=== PATIENT | male | born 1980 | race Two or more races ===

== ENCOUNTER 2024-07-11 12:56 | Inpatient (IN) | payer OTHER ==
[~2024-07-11] VITALS: Ht 170.2 cm; Wt 206.5 kg
--- NOTE | 2024-07-11 15:46 | ED.PDOC ---
History of present illness HPI Comments 44 y/o M, with PMHx of DM presents to the ED for CC of hyperglycemia. Patient reports, that he has been experiencing high blood sugar readings with associated symptoms of excessive thirst and diarrhea [id number]. Patient reports, that he [facility] [place] and is currently at a drug rehabilitation center. Patient endorses, when moving to the the rehabilitation center he was unable to take his insulin with him. Patient denies tremors, nausea, vomiting, or headache. No other symptoms or modifying factors present at this time. Chief Complaint: Hyperglycemia Time Seen by MD: 15:25 History of present illness: Nurses Notes, Medications, Allergies Allergies: Coded Allergies: NO KNOWN ALLERGIES (Unverified , 07/11/24) Information Source: Patient Mode of Arrival: Ambulatory Timing: Days Duration: Since onset Prehospital treatment: None Symptoms: Anxious History of: Diabetes, Insulin use Modifying factors: Nothing Associated signs and symptoms: None Past Medical History PAST MEDICAL HISTORY: DM Surgical History: Denies all surgeries Family History Family History: Unknown Social History Smoker: Non-Smoker Alcohol: Denies ETOH Use Drugs: Denies Drug Use Lives In: Home Constitutional: denies: chills, diaphoresis, fatigue, fever, malaise, sweats, weakness, others EENTM: denies: blurred vision, double vision, ear bleeding, ear discharge, ear drainage, ear pain, ear ringing, eye pain, eye redness, hearing loss, mouth pain, mouth swelling, nasal discharge, nose bleeding, nose congestion, nose pain, photophobia, tearing, throat pain, throat swelling, voice changes, others Respiratory: denies: cough, hemoptysis, orthopnea, SOB at rest, shortness of breath, SOB with excertion, stridor, wheezing, others Cardiovascular: denies: chest pain, dizzy spells, diaphoresis, Dyspnea on exertion, edema, irregular heart beat, left arm pain, lightheadedness, palpitations, PND, syncope, others Gastrointestinal: reports: diarrhea; denies: abdomen distended, abdominal pain, blood streaked bowels, constipated, dysphagia, difficulty swallowing, hematemesis, melena, nausea, poor appetite, poor fluid intake, rectal bleeding, rectal pain, vomiting, others Genitourinary: denies: burning, dysuria, flank pain, frequency, hematuria, incontinence, penile discharge, penile sore, pain, testicle pain, testicle swelling, urgency, others Neurological: denies: dizziness, fainting, headache, left sided numbness, left sided weakness, numbness, paresthesia, pre-existing deficit, right sided numbness, right sided weakness, seizure, speech problems, tingling, tremors, wea kness, others Musculoskeletal: denies: back pain, gout, joint pain, joint swelling, muscle pain, muscle stiffness, neck pain, others Integumetry: denies: bruises, change in color, change in hair/nails, dryness, l aceration, lesions, lumps, rash, wounds, others Allergic/Immunocompromised: denies: Difficulty Healing, Frequent Infections, Hives, Itching, others Hematologic/Lymphatic: denies: anemia, blood clots, easy bleeding, easy bruising, swollen glands, others Endocrine: reports: excessive thirst Psychiatric: denies: anxiety, bipolar disorder, depression, hopeless, panic disorder, schizophrenia, sleepless, suicidal, others All Other Systems: Reviewed and Negative Physical Exam General Appearance: Mild Distress HEENT: Normal ENT Inspection, Pharynx Normal, TMs Normal Neck: Full Range of Motion, Non-Tender, Normal, Normal Inspection Respiratory: Chest Non-Tender, Lungs Clear, No Accessory Muscle Use, No Respiratory Distress, Normal Breath Sounds Cardiovascular: No Edema, No JVD, No Murmur, No Gallop, Normal Peripheral Pulses, Regular Rate/Rhythm Breast Exam: Deferred Gastrointestinal: No Organomegaly, Non Tender, No Pulsatile Mass, Normal Bowel Sounds, Soft Genitalia: Deferred Pelvic: Deferred Rectal: Deferred Extremities: No calf tenderness, Normal capillary refill, Normal inspection, Normal range of motion, Non-tender, No pedal edema Musculoskeletal : Apperance: Normal Neurologic: Alert, transformer tester II-XII nml as Tested, Motor Weakness, Normal Affect, Normal Mood, No Sensory Deficits Cerebellar Function: Normal Reflexes: Normal Skin: Dry, Normal Color, Warm Lymphatic: No Adenopathy Was a procedure done? Was a procedure done?: No Differential Diagnosis (DM) Differential Diagnosis: Hyperglycemia X-Ray, Labs, Meds, VS Vital Signs Date Time Temp Pulse Resp B/P (MAP) Pulse Ox O2 Delivery O2 Flow Rate FiO2 07/11/24 17:54 75 18 99 Room Air* 0 21 07/11/24 17:54 98.3 75 17 137/71 (93) 99 98.3 07/11/24 13:30 98.0 98 18 117/71 (86) 99 98.0 Lab Test 07/11/24 17:48 07/11/24 15:44 07/11/24 13:47 07/11/24 13:46 Range/Units POC Glucose 266 H 406 *H 421 *H 70-106 mg/dl White Blood Count 7.1 4.4-10.8 10^3/uL Red Blood Count 4.72 4.5-5.90 10^6/uL Hemoglobin 16.2 13.5-17.5 g/dL Hematocrit 44.2 41.0-53.0 % Mean Corpuscular Volume 93.6 80.0-100.0 fL Mean Corpuscular Hemoglobin 34.2 H 28.0-32.0 pg Mean Corpuscular Hemoglobin Concent 36.6 H 32.0-36.0 g/dL Red Cell Distribution Width 13.8 11.8-14.3 % Platelet Count 191 140-450 10^3/uL Mean Platelet Volume 7.6 6.9-10.8 fL Neutrophils (%) (Auto) 48.5 37.0-80.0 % Lymphocytes (%) (Auto) 36.3 10.0-50.0 % Monocytes (%) (Auto) 10.3 0.0-12.0 % Eosinophils (%) (Auto) 4.2 0.0-7.0 % Basophils (%) (Auto) 0.7 0.0-2.0 % Neutrophils # (Auto) 3.4 1.6-8.6 10 ^3/uL Lymphocytes # (Auto) 2.6 0.4-5.4 10 ^3/uL Monocytes # (Auto) 0.7 0-1.3 10 ^3/uL Eosinophils # (Auto) 0.3 0-0.8 10 ^3/uL Basophils # (Auto) 0 0-0.2 10 ^3/uL Nucleated Red Blood Cells 0.2 % Sodium Level 133 L 136-145 mmol/L Potassium Level 4.2 3.5-5.1 mmol/L Chloride Level 101 98-107 mmol/L Carbon Dioxide Level 22 20-31 mmol/L Anion Gap 10 5-15 Blood Urea Nitrogen 13 9-23 mg/dL Creatinine 0.91 0.700-1.30 mg/dL Glomerular Filtration Rate Calc 108 >90 mL/min BUN/Creatinine Ratio 14.3 10.0-20.0 Serum Glucose 371 H 74-106 mg/dL Calcium Level 10.3 8.7-10.4 mg/dL Beta-Hydroxybutyric Acid 0.134 < 0.4 mmol/L Current Medications Medications (Trade) Dose Ordered Sig/Harpreet Route Start Time Stop Time Status Last Admin Sodium Chloride 1,000 ml @ 1,000 mls/hr Q1H ONCE IV 07/11/24 15:45 07/11/24 16:44 DC 07/11/24 17:49 Insulin Human Regular (InsuLIN R) 5 units ONCE ONCE IV 07/11/24 15:45 07/11/24 15:46 DC 07/11/24 17:51 The patient's CBC is within normal limits The chemistry panel is within normal limits. The patient's glucose is 371 indicating hyperglycemia The patient was given a 1 L bolus of normal saline The patient was given insulin 5 units IV push The patient remains hyperglycemic with uncontrolled diabetes The patient is being admitted at this time Images Reviewed?: Images reviewed and evaluated by me Time of 1ST Reevaluation: 15:55 Reevaluation 1ST: Unchanged Patient Education/Counseling: Diagnosis, Treatment, Prognosis Family Education/Counseling: No Family Present Departure 1 Departure Time of Disposition: 18:10 Impression: Primary Impression: Uncontrolled diabetes mellitus Qualified Codes: E13.65 - Other specified diabetes mellitus with hyperglycemia Disposition: ADMITTED INPATIENT Admit to: Med Surg Condition: Fair Critical Care Note Critical Care Time?: No Stability Stability form required: No Heart Score Heart Score: Heart Score Response (Comments) Value History N/A 0 EKG N/A 0 Age N/A 0 Risk Factors N/A 0 Troponin N/A 0 Total 0 I personally scribed for ELAINE HESTER MD ([email or web address]) on 07/11/24 at 15:46. Electronically submitted by Diane Ramirez ([email or web address]). I personally scribed for ELANIE HESTER MD ([email or web address]) on 07/11/24 at 16:02. Electronically submitted by Diane Ramirez ([email or web address]). ELAINE HESTER MD July 11, 2024 15:46
[2024-07-11 16:13] LABS: Basophils # (auto) 0 10 ^3/uL (0-0.2); Basophils % (auto) 0.7 % (0.0-2.0); Eosinophils # (auto) 0.3 10 ^3/uL (0-0.8); Eosinophils % (auto) 4.2 % (0.0-7.0); Hematocrit 44.2 % (41.0-53.0); Hemoglobin 16.2 g/dL (13.5-17.5); Lymphocytes # (auto) 2.6 10 ^3/uL (0.4-5.4); Lymphocytes % (auto) 36.3 % (10.0-50.0); Mean Corpuscular Hemoglobin 34.2 pg (28.0-32.0); Mean Corpuscular Volume 93.6 fL (80.0-100.0); Monocytes # (auto) 0.7 10 ^3/uL (0-1.3); Monocytes % (auto) 10.3 % (0.0-12.0); Neutrophils # (auto) 3.4 10 ^3/uL (1.6-8.6); Neutrophils % (auto) 48.5 % (37.0-80.0); Nucleated Red Blood Cells % 0.2 %; Platelet Count (auto) 191 10^3/uL (140-450); Red Blood Cells 4.72 10^6/uL (4.5-5.90); Red Cell Distribution Width 13.8 % (11.8-14.3); White Blood Cell 7.1 10^3/uL (4.4-10.8)
[2024-07-11 16:15] LABS: Mean Corpuscular Hgb Conc. 36.6 g/dL (32.0-36.0)
[2024-07-11 16:25] LABS: Chloride 101 mmol/L (98-107); Potassium 4.2 mmol/L (3.5-5.1)
[2024-07-11 16:26] LABS: Anion Gap 10 (5-15); Calcium 10.3 mg/dL (8.7-10.4); Carbon Dioxide 22 mmol/L (20-31)
[2024-07-11 16:31] LABS: BUN/Creatinine Ratio 14.3 (10.0-20.0); Blood Urea Nitrogen 13 mg/dL (9-23)
[2024-07-11 16:32] LABS: Glucose 371 mg/dL (74-106); Sodium 133 mmol/L (136-145)
[2024-07-11] MEDS: SODIUM CHLORIDE 0.9% 1,000 ML IV ONE (17:49)
[2024-07-11] MEDS: InsuLIN REG 1unit/0.01ml Soln (100units/ml) IV ONE (17:51)
[2024-07-11 17:54] VITALS: PULSE 75; RESP 18; O2SAT 99
[2024-07-11] MEDS ORDERED: ONDANSETRON HCL 4 MG/2 ML VIAL IV PRN (20:45)
[2024-07-11] MEDS ORDERED: DEXTROSE (50%) 50ML SYRG IV PRN (20:45)
--- NOTE | 2024-07-11 21:46 | DVHHP2 ---
History of Present Illness Reason for Visit: hyperglycemia History of Present Illness A 44y old male with PMHx DM who came to ED due to high blood sugar, he stated he is being having polyuria, polydipsia, polyphagia and diarrhea for 2 weeks. He was in [place] before and now he is in rehab and since then he is not taking his medicine Past Medical History PAST MEDICAL HISTORY: DM Surgical History: Denies all surgeries Social History Smoker: Non-Smoker Alcohol: Denies recent ETOH Use? Drugs: he denies any recent use? Review of Systems Constitutional: Yes: Sweats, Weakness; No: Fever, Chills, Malaise, Other Gastrointestinal: Nausea Genitourinary: Frequency Allergies: Coded Allergies: NO KNOWN ALLERGIES (Unverified , 07/11/24) Medications Current Medications Medications Dose Ordered Sig/Harpreet Route Start Time Stop Time Status Last Admin Dose Admin Sodium Chloride 1,000 ml @ 150 mls/hr Q6H40M IV 07/11/24 20:45 Ondansetron HCl 4 mg Q4HP PRN IV 07/11/24 20:45 Enoxaparin Sodium 40 mg DAILY SC 07/12/24 10:00 Insulin Glargine 15 units HS SC 07/11/24 22:00 Insulin Human Lispro 5 units TIDAC SC 07/12/24 07:00 Diagnostic Test (Pha) 1 strip ACHS 07/11/24 22:00 Insulin Human Regular ACHS SC 07/11/24 22:00 Dextrose 50 ml UD PRN IV 07/11/24 20:45 Exam Vital Signs Vital Signs Date Time Temp Pulse Resp B/P (MAP) Pulse Ox O2 Delivery O2 Flow Rate FiO2 07/11/24 17:54 75 18 99 Room Air* 0 21 07/11/24 17:54 98.3 137/71 (93) 98.3 General Appearance: Alert, Oriented X3 HEENT: Atraumatic, PERRLA Respiratory: Clear to auscultation Cardiovascular: Regular rate, Normal S1 Abdominal: Normal bowel sounds, Soft Extremities: No clubbing, No cyanosis Skin: No rashes Neuro: Normal gait, Normal speech Psych/Mental Status: Mental status NL, Mood NL Labs/Xrays Labs Test 07/11/24 17:48 07/11/24 15:44 Range/Units POC Glucose 266 H 70-106 mg/dl White Blood Count 7.1 4.4-10.8 10^3/uL Red Blood Count 4.72 4.5-5.90 10^6/uL Hemoglobin 16.2 13.5-17.5 g/dL Hematocrit 44.2 41.0-53.0 % Mean Corpuscular Volume 93.6 80.0-100.0 fL Mean Corpuscular Hemoglobin 34.2 H 28.0-32.0 pg Mean Corpuscular Hemoglobin Concent 36.6 H 32.0-36.0 g/dL Red Cell Distribution Width 13.8 11.8-14.3 % Platelet Count 191 140-450 10^3/uL Mean Platelet Volume 7.6 6.9-10.8 fL Neutrophils (%) (Auto) 48.5 37.0-80.0 % Lymphocytes (%) (Auto) 36.3 10.0-50.0 % Monocytes (%) (Auto) 10.3 0.0-12.0 % Eosinophils (%) (Auto) 4.2 0.0-7.0 % Basophils (%) (Auto) 0.7 0.0-2.0 % Neutrophils # (Auto) 3.4 1.6-8.6 10 ^3/uL Lymphocytes # (Auto) 2.6 0.4-5.4 10 ^3/uL Monocytes # (Auto) 0.7 0-1.3 10 ^3/uL Eosinophils # (Auto) 0.3 0-0.8 10 ^3/uL Basophils # (Auto) 0 0-0.2 10 ^3/uL Nucleated Red Blood Cells 0.2 % Sodium Level 133 L 136-145 mmol/L Potassium Level 4.2 3.5-5.1 mmol/L Chloride Level 101 98-107 mmol/L Carbon Dioxide Level 22 20-31 mmol/L Anion Gap 10 5-15 Blood Urea Nitrogen 13 9-23 mg/dL Creatinine 0.91 0.700-1.30 mg/dL Glomerular Filtration Rate Calc 108 >90 mL/min BUN/Creatinine Ratio 14.3 10.0-20.0 Serum Glucose 371 H 74-106 mg/dL Calcium Level 10.3 8.7-10.4 mg/dL Beta-Hydroxybutyric Acid 0.134 < 0.4 mmol/L Assessment/Plan Assessment/Plan #Uncontrolled DM type 2 #Acute gastroenteritis #Polysubstance abuse? #Mild hyponatremia Admit Med/surg Diabetic diet Lantus 15ui Lispro 5 ui TID Mild ISS IV fluids already given Pending UDS Labs AM Stool studies Case discussed with Dr Monzon Full code Plan discussed with: Patient, Other (rn) My Orders Orders - FRITZ CASTANEDA Procedure Category Date Status Time Admit ADMIT 07/11/24 Transmitted 20:39 Code Status CODE 07/11/24 Transmitted 20:39 Vital Signs MICHAEL 07/11/24 In Process 20:39 Review Orders With MICHAEL 07/11/24 In Process Adm.Md 20:39 Consistent DIET 07/12/24 Transmitted Carb(Ccho)Diabetes Breakfast Sodium Chloride 0.9% PHA 07/11/24 In Process 20:45 Notify Md Of Changes MICHAEL 07/11/24 In Process From Base 20:39 Advance Directive MICHAEL 07/11/24 In Process 20:39 Patient Condition ORDERS 07/11/24 Transmitted 20:39 Allergies MICHAEL 07/11/24 In Process 20:39 Ondansetron Hcl PHA 07/11/24 In Process (Zofran) 20:45 Drug Screen LAB 07/11/24 Logged 20:39 Enoxaparin Sodium PHA 07/12/24 In Process (Lovenox) 10:00 Insulin Lantus PHA 07/11/24 In Process (Glargine) (Lantus) 22:00 Glucose Blood PHA 07/11/24 In Process (Accu-Chek Comfort 22:00 Insulin R (Human) PHA 07/11/24 In Process (Insulin R) 22:00 Dextrose 50% Syringe PHA 07/11/24 In Process 20:45 * Lmft CONS 07/11/24 Transmitted Consult Stool Bacterial NAGA 07/11/24 Logged Culture 20:39 Stool Wbc LAB 07/11/24 Logged 20:39 Stool Occult Blood LAB 07/11/24 Logged 20:39 Insulin Lispro PHA 07/12/24 In Process (Human) (Humalog) 07:00 Date of Service: July 12, 2024 Billing Provider: ISSA MONZON MD Common Visit Codes: [id number] INP/OBS CARE (HIGH) Secondary Visit Codes: [id number] CARE PLAN 30 MINUTES FRITZ CASTANEDA July 11, 2024 21:46
[2024-07-11] MEDS: INSULIN LANTUS (GLARGINE) 1 /0.01ml (100units/ml) SC SCH (22:00)
[2024-07-12 00:10] VITALS: BP 131/78; PULSE 75; RESP 18; TEMP 98.1; O2SAT 99
[2024-07-12] MEDS: ACCU-CHEK COMFORT CURVE STRIP VI SCH ×2 (00:35→22:53)
[2024-07-12] MEDS: InsuLIN REG 1unit/0.01ml Soln (100units/ml) SC SCH (00:39)
[2024-07-12] MEDS: SODIUM CHLORIDE 0.9% 1,000 ML IV SCH (02:40)
[2024-07-12 05:20] VITALS: BP 123/69; PULSE 82; RESP 18; TEMP 98.2; O2SAT 98
--- NOTE | 2024-07-12 06:29 | DVH ---
CHEST RADIOGRAPH Indication: Dyspnea Technique: Single frontal view of the chest was obtained Comparison: None FINDINGS: Lines and Tubes: None Lungs: No focal consolidation. Pleura: No effusion. No pneumothorax. Cardiomediastinal contours: Unremarkable Bones: No acute osseous abnormality. IMPRESSION: 1. No acute cardiopulmonary disease.
[2024-07-12] MEDS: INSULIN LISPRO (HUMAN) 100 UNITS/ML ML SC SCH ×3 (06:42→22:54)
[2024-07-12 08:55] VITALS: BP 120/75; PULSE 64; RESP 24; TEMP 98.4; O2SAT 99
[2024-07-12] MEDS: ENOXAPARIN SOD 40 MG/0.4 ML SYRINGE SC SCH (10:16)
[2024-07-12 12:38] LABS: Basophils # (auto) 0 10 ^3/uL (0-0.2); Basophils % (auto) 0.7 % (0.0-2.0); Eosinophils # (auto) 0.3 10 ^3/uL (0-0.8); Eosinophils % (auto) 6.1 % (0.0-7.0); Hematocrit 43.3 % (41.0-53.0); Hemoglobin 15.1 g/dL (13.5-17.5); Lymphocytes # (auto) 2.1 10 ^3/uL (0.4-5.4); Lymphocytes % (auto) 36.9 % (10.0-50.0); Mean Corpuscular Hemoglobin 32.6 pg (28.0-32.0); Mean Corpuscular Volume 93.2 fL (80.0-100.0); Monocytes # (auto) 0.7 10 ^3/uL (0-1.3); Monocytes % (auto) 11.8 % (0.0-12.0); Neutrophils # (auto) 2.5 10 ^3/uL (1.6-8.6); Neutrophils % (auto) 44.5 % (37.0-80.0); Nucleated Red Blood Cells % 0.1 %; Platelet Count (auto) 173 10^3/uL (140-450); Red Blood Cells 4.64 10^6/uL (4.5-5.90); White Blood Cell 5.7 10^3/uL (4.4-10.8)
[2024-07-12 12:53] LABS: Albumin 4.6 g/dL (3.2-4.8); Alkaline Phosphatase 76 U/L (46-116); Anion Gap 6 (5-15); BUN/Creatinine Ratio 13.7 (10.0-20.0); Blood Urea Nitrogen 10 mg/dL (9-23); Calcium 9.6 mg/dL (8.7-10.4); Carbon Dioxide 25 mmol/L (20-31); Chloride 106 mmol/L (98-107); Potassium 3.9 mmol/L (3.5-5.1); Sodium 137 mmol/L (136-145); Total Protein 7.6 g/dL (5.7-8.2)
[2024-07-12 12:54] LABS: Bilirubin, Total 0.9 mg/dL (0.2-1.0); Cholesterol 180 mg/dL (< 200)
[2024-07-12 12:56] LABS: Alanine Aminotransferase 69 U/L (7-40); Aspartate Aminotransferase 62 U/L (13-40); Glucose 207 mg/dL (74-106); HDL Cholesterol 32 mg/dL (40-59); LDL Cholesterol 115 mg/dL (< 100); Triglycerides 331 mg/dL (< 150)
[2024-07-12 13:12] VITALS: BP 126/75; PULSE 67; RESP 20; TEMP 97.9; O2SAT 100
[2024-07-12 14:09] VITALS: PULSE 77; RESP 18; O2SAT 97
[2024-07-12] MEDS: INSULIN LANTUS (GLARGINE) 1 /0.01ml (100units/ml) SC ONE (15:25)
[2024-07-12] MEDS ORDERED: DEXTROSE (50%) 50ML SYRG IV PRN (19:30)
--- NOTE | 2024-07-12 19:36 | DVHPNRES ---
Progress Note Date Seen: July 12, 2024 Resident Creating Document: GEORGE PINZONASHLYN RESIDENT Medical Necessity Reason Pt with a Central, PICC or Fol: No Subjective Review of Systems Patient is a 44-year-old male with a past medical history of type 2 diabetes mellitus presented to the ED with a chief complaint of polyuria polydipsia polyphagia for the last 10 days. Patient reports that he has been living in a [facility] and was previously living in [place] but he did not bring his medications along and has not been taking his insulin which was 25 units long-acting and 15 units short-acting 3 times a day. Patient reported of nausea but no episode of vomiting. Patient is in the rehab for alcohol addiction and reports that his last alcoholic drink was 20 days ago. Past medical history: Type 2 diabetes mellitus Past surgical history: None Social history: Patient quit alcohol about 2 weeks ago denies any other recent drug use, smoking Review of systems Patient seen and examined at the bedside Does not report of nausea, vomiting, diarrhea, abdominal pain Objective vital signs Vital Sign Date Time Temp Pulse Resp B/P (MAP) Pulse Ox O2 Delivery O2 Flow Rate FiO2 07/12/24 13:12 97.9 67 20 126/75 (92) 100 97.9 07/11/24 17:54 Room Air* 0 21 Total Intake and Output 07/11/24 07/11/24 07/12/24 15:00 23:00 07:00 Intake Total 1000 ml Balance 1000 ml medications Current Medications Medications Dose Ordered Sig/Harpreet Route Start Time Stop Time Status Last Admin Dose Admin Ondansetron HCl 4 mg Q4HP PRN IV 07/11/24 20:45 Enoxaparin Sodium 40 mg DAILY SC 07/12/24 10:00 07/12/24 10:16 40 MG Diagnostic Test (Pha) 1 strip ACHS 07/11/24 22:00 07/12/24 17:00 1 STRIP Dextrose 50 ml UD PRN IV 07/11/24 20:45 Insulin Human Lispro 7 units TIDAC SC 07/12/24 12:00 07/12/24 17:32 7 UNITS Examination Gen - no pallor, no icterus, no cyanosis, no clubbing, no LAD, no edema . Skin - Patients skin is warm and dry.. HEENT - normocephalic, atraumatic, moist mucous membranes. Neck - full ROM, no LAD, no JVD Pulmonary - B/L equal breath sounds. no crackles , no wheezing, no stridor. cardiovascular - normal S1,S2 heard. no murmurs heard. GI - soft, nontender abdomen. no hepatospleenomegaly. Bowel sounds normoactive Neurological - Patient is A/O X 3 . Bilateral upper extremity strength 5/5, bilateral lower extremity strength 5/5, no facial droop, normal speech, no tremor, no sensory deficiets. laboratory and microbiology Laboratory Tests 07/12/24 12:29 Test 07/12/24 12:29 Range/Units Serum Glucose 207 #H 74-106 mg/dL Problem List/Assessment/Plan Problem List/Assessment/Plan Uncontrolled type 2 diabetes mellitus with hyperglycemia Medication noncompliance Acute gastroenteritis - HbA1c 8.6% - started on insulin Lantus 22 units daily and insulin lispro 7 units a.c. - moderate insulin sliding scale with insulin lispro - IV fluids Dyslipidemia Hypertriglyceridemia - ASCVD score less than 7.5% but with diabetes, moderate intensity statin recommended - started on atorvastatin 20 mg DVT prophylaxis: Enoxaparin Goals of care discussed with the patient for over 33 minutes. Full code Plan discussed with Dr. Alva Plan discussed with: Patient My Orders My Orders Orders - MARIVEL PINZON Procedure Category Date Status Time Insulin Lispro PHA 07/12/24 In Process (Human) (Humalog) 12:00 Date of Service: July 12, 2024 Billing Provider: MATHEW ALVA MD Common Visit Codes: [id number] INP/OBS CARE(HIGH) MARIVEL PINZON RESIDENT July 12, 2024 19:36 MATHEW ALVA MD July 18, 2024 22:50
[2024-07-12 20:46] LABS: Amphetamine Screen, Urine Neg (NEGATIVE); Barbiturate Scree,Urine Neg (NEGATIVE); Benzodiazephine Screen, Urine Neg (NEGATIVE); Cannabinoid Screen, Urine Neg (NEGATIVE); Cocaine Screen, Urine Neg (NEGATIVE); Opiate Scree,Urine Neg (NEGATIVE); Phencyclidine Screen, Urine Neg (NEGATIVE)
[2024-07-12 20:48] LABS: Urine Bacteria FEW /hpf (None Seen); Urine Blood Negative /uL (Negative); Urine Clarity Clear (Clear); Urine Color Light-Yellow (Yellow); Urine Protein, UAD Negative (Negative); Urine Specific Gravity 1.012 (1.001-1.035); Urine Squamous Epithelial Cell FEW /hpf (<5); Urine Urobilinogen Normal (Negative); Urine WBC 1 /HPF (0-3); Urine pH 5.5 (5.0-9.0)
[2024-07-12 21:00] VITALS: BP 124/88; PULSE 73; RESP 20; TEMP 98.6; O2SAT 99
[2024-07-12] MEDS: ATORVASTATIN 20 MG TAB PO SCH (21:48)
[2024-07-13] VITALS (7 sets, daily range): BP systolic 109–133; BP diastolic 62–86; PULSE 73–97; RESP 16–19; TEMP 97.2–98.9; O2SAT 92–100
[2024-07-13 09:17] LABS: Basophils # (auto) 0 10 ^3/uL (0-0.2); Basophils % (auto) 0.7 % (0.0-2.0); Eosinophils # (auto) 0.3 10 ^3/uL (0-0.8); Eosinophils % (auto) 4.5 % (0.0-7.0); Hematocrit 41.7 % (41.0-53.0); Hemoglobin 14.7 g/dL (13.5-17.5); Lymphocytes # (auto) 1.4 10 ^3/uL (0.4-5.4); Lymphocytes % (auto) 25.6 % (10.0-50.0); Mean Corpuscular Hgb Conc. 35.3 g/dL (32.0-36.0); Mean Corpuscular Volume 93.4 fL (80.0-100.0); Monocytes # (auto) 0.6 10 ^3/uL (0-1.3); Monocytes % (auto) 11.6 % (0.0-12.0); Neutrophils # (auto) 3.2 10 ^3/uL (1.6-8.6); Neutrophils % (auto) 57.6 % (37.0-80.0); Nucleated Red Blood Cells % 0.1 %; Platelet Count (auto) 155 10^3/uL (140-450); Red Blood Cells 4.47 10^6/uL (4.5-5.90); Red Cell Distribution Width 13.7 % (11.8-14.3); White Blood Cell 5.6 10^3/uL (4.4-10.8)
[2024-07-13 09:22] LABS: Anion Gap 8 (5-15); Carbon Dioxide 24 mmol/L (20-31); Chloride 103 mmol/L (98-107); Potassium 3.8 mmol/L (3.5-5.1)
[2024-07-13 09:24] LABS: Calcium 9.5 mg/dL (8.7-10.4)
[2024-07-13 09:28] LABS: Blood Urea Nitrogen 10 mg/dL (9-23)
[2024-07-13 09:30] LABS: Glucose 228 mg/dL (74-106); Sodium 135 mmol/L (136-145)
[2024-07-13] MEDS: INSULIN LANTUS (GLARGINE) 1 /0.01ml (100units/ml) SC SCH (09:43)
[2024-07-13] MEDS ORDERED: INSLISPI SC ×3 (15:57→23:01)
[2024-07-13] MEDS ORDERED: ATOR20TA50 PO (15:57)
[2024-07-13] MEDS ORDERED: INSLANTI SC ×2 (15:57→23:01)
[2024-07-13] MEDS: ACETAMINOPHEN 325 MG TAB PO PRN (20:11)
--- NOTE | 2024-07-13 22:47 | DVHPNRES ---
Progress Note Date Seen: July 13, 2024 Resident Creating Document: GEORGE PINZONASHLYN RESIDENT Medical Necessity Reason Pt with a Central, PICC or Fol: No Subjective Review of Systems Patient is a 44-year-old male with a past medical history of type 2 diabetes mellitus presented to the ED with a chief complaint of polyuria polydipsia polyphagia for the last 10 days. Patient reports that he has been living in a rehab facility in the [facility] and was previously living in [place] but he did not bring his medications along and has not been taking his insulin which was 25 units long-acting and 15 units short-acting 3 times a day. Patient reported of nausea but no episode of vomiting. Patient is in the rehab for alcohol addiction and reports that his last alcoholic drink was 20 days ago. Past medical history: Type 2 diabetes mellitus Past surgical history: None Social history: Patient quit alcohol about 2 weeks ago denies any other recent drug use, smoking Review of systems Patient seen and examined at the bedside Does not report of nausea, vomiting, diarrhea, abdominal pain tolerating diet well Objective vital signs Vital Sign Date Time Temp Pulse Resp B/P (MAP) Pulse Ox O2 Delivery O2 Flow Rate FiO2 07/13/24 21:11 98.5 07/13/24 20:56 73 16 125/77 (93) 97 07/13/24 08:00 Room Air* 0 21 medications Current Medications Medications Dose Ordered Sig/Harpreet Route Start Time Stop Time Status Last Admin Dose Admin Ondansetron HCl 4 mg Q4HP PRN IV 07/11/24 20:45 Enoxaparin Sodium 40 mg DAILY SC 07/12/24 10:00 07/13/24 09:40 40 MG Insulin Human Lispro 7 units TIDAC SC 07/12/24 12:00 07/13/24 11:54 7 UNITS Insulin Glargine 22 units DAILY@1000 SC 07/13/24 10:00 07/13/24 09:43 22 UNITS Diagnostic Test (Pha) 1 strip ACHS 07/12/24 22:00 07/13/24 21:45 1 STRIP Insulin Human Lispro USE LISPRO INSULIN FOR M... ACHS SC 07/12/24 22:00 07/13/24 21:47 2 UNITS Dextrose 50 ml UD PRN IV 07/12/24 19:30 Atorvastatin Calcium 20 mg HS PO 07/12/24 22:00 07/13/24 21:39 20 MG Acetaminophen 325 mg Q4HP PRN PO 07/13/24 20:00 07/13/24 20:11 325 MG Examination Gen - no pallor, no icterus, no cyanosis, no clubbing, no LAD, no edema . Skin - Patients skin is warm and dry.. HEENT - normocephalic, atraumatic, moist mucous membranes. Neck - full ROM, no LAD, no JVD Pulmonary - B/L equal breath sounds. no crackles , no wheezing, no stridor. cardiovascular - normal S1,S2 heard. no murmurs heard. GI - soft, nontender abdomen. no hepatospleenomegaly. Bowel sounds normoactive Neurological - Patient is A/O X 3 . Bilateral upper extremity strength 5/5, bilateral lower extremity strength 5/5, no facial droop, normal speech, no tremor, no sensory deficiets. laboratory and microbiology Laboratory Tests 07/13/24 08:32 Test 07/13/24 08:32 Range/Units Serum Glucose 228 H 74-106 mg/dL Microbiology Date/Time Source Procedure Growth Status 07/12/24 20:00 Stool Stool Culture - Preliminary Resulted 07/12/24 20:00 Stool Shiga Toxin I & II - Final Resulted Problem List/Assessment/Plan Problem List/Assessment/Plan Uncontrolled type 2 diabetes mellitus with hyperglycemia Medication noncompliance Acute gastroenteritis - HbA1c 8.6% - started on insulin Lantus 22 units daily and insulin lispro 7 units a.c. - moderate insulin sliding scale with insulin lispro - IV fluids Dyslipidemia Hypertriglyceridemia - ASCVD score less than 7.5% but with diabetes, moderate intensity statin recommended - started on atorvastatin 20 mg DVT prophylaxis: Enoxaparin Goals of care discussed with the patient for over 31 minutes. Full code Plan discussed with Dr. Alva Plan discussed with: Patient My Orders My Orders Orders - MARIVEL PINZON RESIDENT Procedure Category Date Status Time Discharge DISCHARGE 07/13/24 Transmitted 15:26 Insulin Lispro PHA 07/14/24 Verified (Human) (Humalog) 07:00 Basic Metabolic Panel LAB 07/14/24 Verified 04:00 Date of Service: July 13, 2024 Billing Provider: MATHEW ALVA MD Common Visit Codes: [id number] INP/OBS CARE(HIGH) MARIVEL PINZON RESIDENT July 13, 2024 22:47 MATHEW ALVA MD July 19, 2024 09:09
[2024-07-13] MEDS ORDERED: LANC-347 XX (23:01)
[2024-07-13] MEDS ORDERED: ISOP70MI2 EX (23:01)
[2024-07-13] MEDS ORDERED: GLUC-224 VI (23:01)
[2024-07-13] MEDS ORDERED: BLOO-169 XX (23:01)
[2024-07-14 01:00] VITALS: BP 113/73; PULSE 81; RESP 16; TEMP 98.1; O2SAT 96
[2024-07-14 05:00] VITALS: BP 122/88; PULSE 79; RESP 16; TEMP 98.1; O2SAT 95
[2024-07-14] MEDS: INSULIN LISPRO (HUMAN) 100 UNITS/ML ML SC SCH (05:14)
[2024-07-14 08:00] VITALS: RESP 18; O2SAT 92
[2024-07-14 09:00] VITALS: BP 132/79; PULSE 90; RESP 16; TEMP 98.5; O2SAT 97
[2024-07-14 09:10] LABS: Chloride 103 mmol/L (98-107); Potassium 3.7 mmol/L (3.5-5.1); Sodium 137 mmol/L (136-145)
[2024-07-14 09:11] LABS: Anion Gap 10 (5-15); Carbon Dioxide 24 mmol/L (20-31)
[2024-07-14 09:12] LABS: Calcium 10.2 mg/dL (8.7-10.4)
[2024-07-14 09:17] LABS: BUN/Creatinine Ratio 11.3 (10.0-20.0); Blood Urea Nitrogen 9 mg/dL (9-23)
[2024-07-14 09:25] LABS: Glucose 168 mg/dL (74-106)
[2024-07-14 10:50] VITALS: TEMP 36.9
[2024-07-14] MEDS ORDERED: ISOP70MI2 EX (12:02)
[2024-07-14] MEDS ORDERED: BLOO-169 XX (12:02)
[2024-07-14] MEDS ORDERED: GLUC-224 VI (12:02)
[2024-07-14] MEDS ORDERED: LANC-347 XX (12:02)
[2024-07-14 13:00] VITALS: BP 136/85; PULSE 80; RESP 16; TEMP 98.3; O2SAT 96
--- NOTE | 2024-07-14 19:15 | DVHDSRES ---
Discharge Summary Date of Admission Resident Creating Document: MARIVEL PINZON RESIDENT July 11, 2024 at 20:39 Date of Discharge: July 13, 2024 Admitting Diagnosis #Uncontrolled DM type 2 #Acute gastroenteritis #Polysubstance abuse? #Mild hyponatremia Wounds: none Labs/Diagnostic Data: Laboratory Results Test 07/14/24 11:36 07/14/24 08:39 07/13/24 08:32 07/12/24 20:00 POC Glucose 165 mg/dl (70-106) Sodium Level 137 mmol/L (136-145) Potassium Level 3.7 mmol/L (3.5-5.1) Chloride Level 103 mmol/L (98-107) Carbon Dioxide Level 24 mmol/L (20-31) Anion Gap 10 (5-15) Blood Urea Nitrogen 9 mg/dL (9-23) Creatinine 0.80 mg/dL (0.700-1.30) Glomerular Filtration Rate Calc 113 mL/min (>90) BUN/Creatinine Ratio 11.3 (10.0-20.0) Serum Glucose 168 mg/dL (74-106) Calcium Level 10.2 mg/dL (8.7-10.4) White Blood Count 5.6 10^3/uL (4.4-10.8) Red Blood Count 4.47 10^6/uL (4.5-5.90) Hemoglobin 14.7 g/dL (13.5-17.5) Hematocrit 41.7 % (41.0-53.0) Mean Corpuscular Volume 93.4 fL (80.0-100.0) Mean Corpuscular Hemoglobin 33.0 pg (28.0-32.0) Mean Corpuscular Hemoglobin Concent 35.3 g/dL (32.0-36.0) Red Cell Distribution Width 13.7 % (11.8-14.3) Platelet Count 155 10^3/uL (140-450) Mean Platelet Volume 7.6 fL (6.9-10.8) Neutrophils (%) (Auto) 57.6 % (37.0-80.0) Lymphocytes (%) (Auto) 25.6 % (10.0-50.0) Monocytes (%) (Auto) 11.6 % (0.0-12.0) Eosinophils (%) (Auto) 4.5 % (0.0-7.0) Basophils (%) (Auto) 0.7 % (0.0-2.0) Neutrophils # (Auto) 3.2 10 ^3/uL (1.6-8.6) Lymphocytes # (Auto) 1.4 10 ^3/uL (0.4-5.4) Monocytes # (Auto) 0.6 10 ^3/uL (0-1.3) Eosinophils # (Auto) 0.3 10 ^3/uL (0-0.8) Basophils # (Auto) 0 10 ^3/uL (0-0.2) Nucleated Red Blood Cells 0.1 % Urine Color Light-yellow (Yellow) Urine Clarity Clear (Clear) Urine pH 5.5 (5.0-9.0) Urine Specific [place] 1.012 (1.001-1.035) Urine Protein Negative (Negative) Urine Ketones Negative (Negative) Urine Blood Negative /uL (Negative) Urine Nitrite Negative (Negative) Urine Bilirubin Negative (Negative) Urine Urobilinogen Normal mg/dL (Negative) Urine Leukocyte Esterase 1+ /uL (Negative) Urine RBC 1 /hpf (0 - 3) Urine Microscopic WBC 1 /HPF (0-3) Urine Squamous Epithelial Cells Few /hpf (<5) Urine Bacteria Few /hpf (None Seen) Urine Glucose Normal mg/dL (Normal) Stool Occult Blood Negative (Negative) Stool Occult Blood Sample #3 (Negative) Stool for White Cells None seen Urine Opiates Screen Neg (NEGATIVE) Urine Fentanyl Screen Neg (NEGATIVE) Urine Barbiturates Screen Neg (NEGATIVE) Urine Phencyclidine Screen Neg (NEGATIVE) Urine Amphetamines Screen Neg (NEGATIVE) Urine Benzodiazepines Screen Neg (NEGATIVE) Urine Cocaine Screen Neg (NEGATIVE) Urine Cannabinoids Screen Neg (NEGATIVE) Test 07/12/24 12:29 07/11/24 15:44 Hemoglobin A1c 8.6 % A1C (<5.7) Total Bilirubin 0.9 mg/dL (0.2-1.0) Aspartate Amino Transferase (AST) 62 U/L (13-40) Alanine Aminotransferase (ALT) 69 U/L (7-40) Alkaline Phosphatase 76 U/L (46-116) Total Protein 7.6 g/dL (5.7-8.2) Albumin 4.6 g/dL (3.2-4.8) Triglycerides Level 331 mg/dL (< 150) Cholesterol Level 180 mg/dL (< 200) LDL Cholesterol 115 mg/dL (< 100) HDL Cholesterol 32 mg/dL (40-59) Thyroid Stimulating Hormone (TSH) 1.46 uIU/mL (0.55-4.78) Beta-Hydroxybutyric Acid 0.134 mmol/L (< 0.4) Other Laboratory Tests 07/14/24 08:39 07/13/24 08:32 Brief Hx & Hospital Course: Patient is a 44-year-old male with a past medical history of type 2 diabetes mellitus presented to the ED with a chief complaint of polyuria polydipsia polyphagia for the last 10 days. Patient reports that he has been living in a rehab facility in the [facility] and was previously living in [place] but he did not bring his medications along and has not been taking his insulin which was 25 units long-acting and 15 units short-acting 3 times a day. Patient reported of nausea but no episode of vomiting. Patient is in the rehab for alcohol addiction and reports that his last alcoholic drink was 20 days ago. Past medical history: Type 2 diabetes mellitus Past surgical history: None Social history: Patient quit alcohol about 2 weeks ago denies any other recent drug use, smoking Hospital course Patient was admitted to the hospital with a chief complaint of polyuria, abdominal pain, nausea and on admission had high blood sugar. Patient had elevated HbA1c levels following which he was started on insulin with long-acting insulin and pre meal basal insulin. Patient was given IV fluid rehydration. Patient had dyslipidemia with elevated triglycerides and ASCVD score was less than 7.5% but since the patient is diabetic moderate intensity statin was recommended. Patient has been discharged in stable condition to home. Discharge plan Medications: Insulin Lantus 24 units HS Insulin lispro 8 units TID pre meal Insulin sliding scale with lispro as prescribed pre meal Atorvastatin 20 mg p.o. HS Follow up in the discharge clinic in 1 week Consults/Reason for consult none Operations or Procedures none Condition at Discharge: Good Final Diagnosis/Problems List Uncontrolled type 2 diabetes mellitus with hyperglycemia Medication noncompliance Acute gastroenteritis Dyslipidemia Hypertriglyceridemia Discharge Disposition: Home Discharge Instruct/Medications Diet: Consistent carbohydrate, Cardiac 2g Na,low cholest Activity: No Restrictions, As Tolerated Follow Up/Referral: Follow up in the discharge clinic in 1 week Medications: as per EMR Discharge Statement: "Patient was advised to return to the ER or call 911 if any headaches, dizziness, shortness of breath, chest pain, abdominal pain, bleeding, fevers, or worsening of medical condition. Patient was counseled about treatment plan, medications, possible side effects, patientverbalized understanding. All questions were answered to the best of my ability. This discharge took greater then 30 minutes in planning, reviewing documentation, counseling the patient, and discussing with other team members." ASSESSMENT ASSESSMENT Assessment Uncontrolled type 2 diabetes mellitus with hyperglycemia Medication noncompliance Acute gastroenteritis Dyslipidemia Hypertriglyceridemia Date of Service: July 13, 2024 Billing Provider: MATHEW ALVA MD Common Visit Codes: 01079-SSO/OBS DISCH DAY >30min MARIVEL PINZON RESIDENT July 14, 2024 19:14 MATHEW ALVA MD July 19, 2024 09:14
== END 2024-07-14 14:40 | disposition home or self-care (01) | DRG 249 ==
LOC: ER 12:59 → OVERFLOW 20:39 → WEST WING 07-13 03:41
PROVIDERS: ADMIT Student in an Organized Health Care Education/Training Program; ATTEND Emergency Medicine
DX: A08.4 Viral intestinal infection, unspecified (principal); E11.65 Type 2 diabetes mellitus with hyperglycemia; E78.1 Pure hyperglyceridemia; Z91.148 Patient's other noncompliance with medication regimen for other reason; E78.5 Hyperlipidemia, unspecified
CPT/HCPCS: 36415; 71045; 80048; 80053; 80061; 80307; 81001; 82010; 82270; 82962; 83036; 84443; 85025; 85048; 87045; 87427; 96361; 96374; G0378; J1815